=== PATIENT | female | born 1990 | race Asian ===

== ENCOUNTER → 2018-01-27 | Outpatient (CLI) | payer OTHER | END | disposition home or self-care (01) | LOC: RESP 13:26 | PROVIDERS: ATTEND Internal Medicine | DX: J45.909 Unspecified asthma, uncomplicated (principal) | CPT/HCPCS: 94010; 94726; 94727; 94729 ==

== ENCOUNTER 2019-10-31 16:06 | Emergency (ER) | payer OTHER ==
[~2019-10-31] VITALS: Ht 165.1 cm; Wt 76.4 kg
[2019-10-31 16:08] VITALS: BP 130/77
[2019-10-31] MEDS ORDERED: ACET-66 PO (16:13)
[2019-10-31] MEDS ORDERED: OFLO35OS OU (16:13)
[2019-10-31] MEDS ORDERED: IBUP-2271 PO (16:13)
[2019-10-31] MEDS ORDERED: AMOX-426 PO (16:13)
== END 2019-10-31 16:46 | disposition home or self-care (01) ==
LOC: EMS 16:06
DX: H65.02 Acute serous otitis media, left ear (principal); G43.909 Migraine, unspecified, not intractable, without status migrainosus